=== PATIENT | female | born 1980 | race Caucasian/White ===

== ENCOUNTER → 2023-04-08 | Outpatient (CLI) | payer OTHER ==
--- NOTE | 2023-04-08 13:17 | US ---
EXAMINATION TYPE: US transvaginal DATE OF EXAM: 04/08/2023 COMPARISON: NONE CLINICAL INDICATION: Female, 42 years old with history of N93.8 DUB; abnormal bleeding. TECHNIQUE: Transvaginal (TV EXAM MEASUREMENTS: Uterus: 9.6 x 4.8 x 6.1 cm Endometrial Stripe: 1.3 cm Right Ovary: 2.7 x 2.8 x 2.6 cm 1. Uterus: Anteverted. There are numerous small cervical nabothian cyst. Heterogeneous area anterio r POPPY 1.2 x 1.0 x 1.2 cm. 2. Endometrium: wnl 3. Right Ovary: anechoic area seen 2.4 x 1.5 x 1.9 cm. 4. Left Ovary: Obscured by overlying bowel gas 5. Bilateral Adnexa: wnl 6. Posterior cul-de-sac: wnl IMPRESSION: 1. Numerous small cervical nabothian cysts. 2. A 1.2 cm heterogeneous area along the anterior lower uterine segment. Query prior scar. 3. Endometrial stripe is thickened to 1.3 cm should correspond to seek recovery phase of menstrual cy chastity. 4. A 2.4 cm dominant follicle or functional cyst of the right ovary. 5. Unable to visualize left ovary.
== END | disposition home or self-care (01) ==
LOC: RADUSWWP 12:07
PROVIDERS: ATTEND Obstetrics & Gynecology
DX: N83.201 Unspecified ovarian cyst, right side (principal); N93.8 Other specified abnormal uterine and vaginal bleeding; N88.8 Other specified noninflammatory disorders of cervix uteri
CPT/HCPCS: 76830

== ENCOUNTER 2024-01-13 05:43 | Day surgery (SDC) | payer OTHER ==
[2024-01-08 14:41] VITALS: BMI 38.0
--- NOTE | 2024-01-10 06:36 | P.HPOB ---
History of Present Illness H&P Date: 01/10/24 Chief Complaint: Dysfunctional uterine bleeding/menorrhagia This patient is a pleasant 43-year-old 2 para 2 female with long- standing dysfunctional uterine bleeding. Patient's had this for many years and has been tolerating a however has worsened most recently. Patient's evaluation has included an ultrasound which was normal and endometrial biopsy which was normal. She's had a tubal ligation for control and wishes to proceed with trial of endometrial ablation for treatment. Review of Systems Genitourinary: Reports as per HPI Menstruation: Reports as per HPI Past Medical History Past Medical History: Diabetes Mellitus, GERD/Reflux Additional Past Medical History / Comment(s): ABD PAIN AND DIARRHEA. GENITAL HERPES History of Any Multi-Drug Resistant Organisms: None Reported Past Surgical History: Section, Cholecystectomy, Orthopedic Surgery, Tubal Ligation Additional Past Surgical History / Comment(s): RIGHT ARM SURGERY. Past Anesthesia/Blood Transfusion Reactions: Postoperative Nausea & Vomiting (PONV) Past Psychological History: No Psychological Hx Reported Smoking Status: Former smoker Past Alcohol Use History: None Reported, Rare Additional Past Alcohol Use History / Comment(s): Smoked in high school only. Past Drug Use History: None Reported - Past Family History Mother Family Medical History: Cancer Father Family Medical History: Cancer Medications and Allergies Home Medications Medication Instructions Recorded Confirmed Type Dapagliflozin Propanediol [Farxiga] 5 mg PO DAILY 01/08/24 01/08/24 History valACYclovir HCL [Valacyclovir] 500 mg PO DAILY 01/08/24 01/08/24 History Allergies Allergy/AdvReac Type Severity Reaction Status Date / Time acetaminophen Allergy Unknown Verified 01/08/24 14:29 [From Darvocet-N] propoxyphene napsylate Allergy Unknown Verified 01/08/24 14:29 [From Darvocet-N] Exam - OBG Physical Exam Abdomen: bowel sounds normal, no diffuse tenderness, no bruit present, no guarding noted, no hepatomegaly, no splenomegaly, no mass Vulva: both: normal Vagina: normal moisture, no discharge Cervix: no lesion, no discharge Uterus: normal size, normal contour Results Transvaginal ultrasound in March of this last year showed a normal endometrium and normal appearing uterus. Endometrial biopsy was normal Assessment and Plan Assessment: This is a pleasant 43-year-old 2 para 2 female long-standing menorrhagia and dysfunctional uterine bleeding with negative evaluation. I discussed treatment options with her including hormonal methods and she is requested trial of endometrial ablation for treatment. Patient understands this surgery and risks and risks of infection, bleeding, possible uterine perforation, and/or thermal injury. All the patient's questions are answered and a written consent is obtained. Plan is to proceed with hysteroscopy, D&C, and NovaSure endometrial ablation. (1) DUB (dysfunctional uterine bleeding) Status: Acute Code(s): N93.8 - OTHER SPECIFIED ABNORMAL UTERINE AND VAGINAL BLEEDING SNOMED Code(s): 27213477791964
[~2024-01-13 05:43] MED LIST: Pre Op ABX Message 1 EACH MISC MISCELLANE ONE
[2024-01-13] MEDS ORDERED: LIDOCAINE 1% (10MG/ML) FOR IV START INTRADERMA PRN (06:04)
[2024-01-13] MEDS ORDERED: HYDROmorphone 0.5 MG/0.5 ML SYRINGE IVP PRN (06:04)
[2024-01-13] MEDS: LACTATED RINGERS 1,000 ML IV SCH (06:25)
[2024-01-13] MEDS: DEXAMETHASONE SOD PHOSPHATE 4 MG/ML 1 ML VIAL IV ONE (06:45)
[2024-01-13] MEDS: MIDAZOLAM 2 MG/2 ML VIAL IV PRN (06:46)
[2024-01-13] MEDS: ONDANSETRON 4 MG/2 ML VIAL IVP ONE (06:46)
[2024-01-13 06:53] LABS: Glucose,Whole Blood 145 mg/dL (70-110)
[2024-01-13] MEDS ORDERED: fentaNYL (PF) 50 MCG/ML 2 ML AMP ONE (06:55)
[2024-01-13] MEDS ORDERED: SUCCINYLCHOLINE CHLORIDE 200 MG/10 ML VIAL IV ONE (06:55)
[2024-01-13] MEDS ORDERED: PROPOFOL 10 MG/ML 20 ML VIAL IV ONE (06:55)
[2024-01-13] MEDS ORDERED: MIDAZOLAM 2 MG/2 ML VIAL ONE (06:55)
[2024-01-13] MEDS ORDERED: LIDOCAINE 1% INJ 10MG/ML (20 ML MDV) ONE (06:55)
[2024-01-13] MEDS ORDERED: KETOROLAC 15 MG/ML 1 ML VIAL ONE (06:55)
--- NOTE | 2024-01-13 07:34 | P.OP ---
Date of Procedure: 01/13/24 Preoperative Diagnosis: Menorrhagia Postoperative Diagnosis: Same Procedure(s) Performed: #1: Hysteroscopy. #2: Dilation and curettage. #3: NovaSure endometrial ablation Anesthesia: VANESSA Surgeon: Walt Gerardo Estimated Blood Loss (ml): 10 Urine output (ml): 20 Pathology: other (Uterine curettings) Condition: stable Disposition: PACU Indications for Procedure: Please see dictated H&P for intimate details of this patient's admission. Brief summary this pleasant 43-year-old 2 para 2 female long-standing menorrhagia and dysfunctional bleeding requesting endometrial ablation for treatment. Patient understands the surgery and risks and risks of infection, bleeding, possible uterine perforation, and/or thermal injury. All the patient's questions are answered and a written consent is obtained. Operative Findings: This patient had a normal-appearing endometrial cavity without evidence of polyps or fibroids. Description of Procedure: This patient is taken to the operating room where she is laid in the supine position. She subsequent undergoes general endotracheal anesthesia without incident. An adequate level of anesthesia she's placed in dorsal lithotomy position. She has a vaginal perineal prep and drape. Examination under anesthesia shows a mid position uterus slightly enlarged. A weighted speculum was placed in the posterior vagina. Bladder is drained for 20 mL of clear urine. The anterior lip of cervix and grabbed with an Allis clamp. I then gently dilate the cervix. Uterus is sounded to 9.5 cm. Gentle dilation is then done of the endocervix to allow the hysteroscope easily and the uterine cavity. Using saline solution hysteroscopy is performed and the endometrial cavity appears normal without evidence of polyps or fibroids. Cavity length was measured at 6.5 cm. This done the cervix is dilated more to allow a small curette easily and the uterine cavity. A gentle but thorough 4 quadrant curettage is then done for adequate sampling. This completed, the NovaSure device is then opened and set at a length of 6.5 cm. It is seated in place and opens up to a width of 4.5 cm. After passing the cavity integrity test, it is enabled at 160 W setting for 48 seconds. NovaSure device is then removed. Hysteroscopy is then performed again and the uterine cavity appears completely ablated up to the endocervix. Excellent results are noted. At this point the procedure is ended. The Allis clamp and weighted speculum removed. All counts are correct 3. There are no complications. Patient is awakened from anesthesia and taken to the recovery room in satisfactory condition.
[2024-01-13 07:41] LABS: Glucose,Whole Blood 151 mg/dL (70-110)
[2024-01-13 07:51] VITALS: RESP 16; TEMP 97
[2024-01-13 09:35] VITALS: BP 130/79; PULSE 76
== END 2024-01-13 09:26 | disposition home or self-care (01) ==
LOC: OR 05:43
PROVIDERS: ATTEND Obstetrics & Gynecology
DX: N92.0 Excessive and frequent menstruation with regular cycle (principal); E11.9 Type 2 diabetes mellitus without complications; K21.9 Gastro-esophageal reflux disease without esophagitis; Z79.84 Long term (current) use of oral hypoglycemic drugs; Z87.891 Personal history of nicotine dependence; Z90.49 Acquired absence of other specified parts of digestive tract; Z79.899 Other long term (current) drug therapy; Z98.51 Tubal ligation status; Z88.8 Allergy status to other drugs, medicaments and biological substances
CPT/HCPCS: 81025; 88305; 58563; J2250; J0330; J1100; J2405; J2001; J3010; J1885; J2704

== ENCOUNTER → 2025-02-16 | Outpatient (CLI) | payer OTHER ==
--- NOTE | 2025-03-24 16:37 | EM ---
EVENT MONITOR THIRTY-DAY EVENT MONITOR REPORT: The patient in her available recordings indicated several episodes when she felt a skipped heartbeat of fast heart rate and such symptoms. All available rhythm strips were reviewed. The rhythm is mostly sinus. Occasional, isolated PVCs. No correlation of any significant arrhythmia with the patient's perception of rapid heartbeat or skipped heartbeat. This is an unremarkable 30-day event monitor. MMODL / IJN: [id number] /
== END | disposition home or self-care (01) ==
LOC: RADECHMAIN 07:23
PROVIDERS: ATTEND Internal Medicine
DX: I49.3 Ventricular premature depolarization (principal); R00.2 Palpitations
CPT/HCPCS: 93270